=== PATIENT | female | born 1975 | race Caucasian/White ===

== ENCOUNTER → 2016-08-17 | Outpatient (CLI) | payer OTHER ==
[~2016-08-17] MED LIST: ABILIFY5 MG PO; ACIPHEX; ANAPROX DS550 MG PO; ATIVAN; DIAZIDE; EFFEXOR 75M75 MG/TAB; KLONOPIN 0.5MG0.5 MG; LEVOTHYROXIN0.075 MG PO; LEVOTHYROXINE PO; LOMOTIL 0.025 M1 TAB PO; LORTAB 5/500 501 TAB PO; PREDNISONE20 MG PO; PRISTIQ 50 MG T50 MG PO; VALTREX1 GM PO; ZOLOFT; ZOLOFT PO; concerta PO
== END ==
LOC: COL.RAD 07:12
DX: R51 Headache (principal)
CPT/HCPCS: A9585

== ENCOUNTER 2022-07-23 08:07 | Emergency (ER) | payer BC ==
[~2022-07-23] VITALS: Ht 162.6 cm; Wt 87.7 kg
[2022-07-23 08:16] VITALS: TEMP 97.1
[2022-07-23 09:11] LABS: COLLECTION METHOD CLEAN CATCH
[2022-07-23 09:16] LABS: BASO # 0.1 K/mm3 (0.0-0.2); BASO % 0.5 % (0.0-2.0); EOS # 0.1 K/mm3 (0.0-0.7); EOS % 0.7 % (0.0-4.0); GRAN # 9.6 K/mm3 (1.4-6.5); GRAN % 84.3 % (42.2-75.2); HEMATOCRIT 41.7 % (37.0-47.0); HEMOGLOBIN 14.3 g/dl (12.5-16.0); LYMPH # 1.2 K/mm3 (1.2-3.4); LYMPH % 10.8 % (20.0-51.0); MEAN CELL VOLUME 82 fl (80.0-100.0); MEAN CORPUSCULAR HEMOGLOBIN 28 pg (27-31); MEAN CORPUSCULAR HGB CONC 34 g/dl (33.0-37.0); MONO # 0.4 K/mm3 (0.1-0.6); MONO % 3.3 % (1.7-9.3); PLATELET COUNT 337 K/mm3 (130-400); RED BLOOD COUNT 5.09 M/mm3 (4.10-5.30); REDCELL DISTRIBUTION WIDTH-CV 14.3 % (11.5-14.5)
[2022-07-23 09:20] LABS: AMORPHOUS CRYSTAL Present (NOT PRESENT); MUCOUS Present (NOT PRESENT); SQUAMOUS EPITHELIAL 0-2 /hpf (0-10); URINE APPEARANCE Hazy (CLEAR/HAZY); URINE BACTERIA Occasional /hpf (NONE SEEN); URINE BLOOD 2+ (NEGATIVE); URINE COLOR Yellow (YELLOW); URINE GLUCOSE Negative (NEGATIVE); URINE KETONE Negative (NEGATIVE); URINE NITRATE Negative (NEGATIVE); URINE PROTEIN(semi-quant) 1+ (NEGATIVE); URINE RBC >50 /hpf (0-2); URINE UROBILINOGEN 0.2 E.U/dL (0.2-1.0)
[2022-07-23 09:33] LABS: ALBUMIN 4.2 gm/dL (3.5-5.0); BILIRUBIN,TOTAL 0.3 mg/dL (0.2-1.2); C-REACTIVE PROTEIN 0.36 mg/dL (0.00-0.50); CALCIUM 9.5 mg/dL (8.4-10.2); CREATININE, serum 0.93 mg/dL (0.57-1.11); POTASSIUM 3.6 mmol/L (3.5-4.5); TOTAL PROTEIN 7.7 gm/dL (6.2-8.1)
[2022-07-23] MEDS ORDERED: NORCO 325 MG-51 TAB PO (11:13)
[2022-07-23] MEDS ORDERED: MACROBID 1100 MG/CAP PO (11:13)
[2022-07-23 11:36] VITALS: BP 132/74; PULSE 81
== END 2022-07-23 11:38 | disposition home or self-care (01) ==
LOC: COL.ER 08:07
PROVIDERS: Family Medicine
DX: N13.2 Hydronephrosis with renal and ureteral calculous obstruction (principal)
CPT/HCPCS: J1885; J2270; J2405; J7120; Q9967